=== PATIENT | female | born 1980 | race Caucasian/White ===

== ENCOUNTER 2023-04-29 09:19 | Outpatient (CLI) | payer BC ==
[2023-04-29 09:36] LABS: HCT - HEMATOCRIT 41.2 % (37.0-47.0); HGB - HEMOGLOBIN 13.1 g/dL (12.0-16.0); MEAN CORPUSCULAR HGB CONC 31.8 g/dL (32.0-36.0); MEAN PLATELET VOLUME 10.3 fL (7.9-10.8); RED BLOOD COUNT 4.68 10^6/uL (4.20-5.40); RED CELL DISTRIBUTION WIDTH 13.7 % (12.0-15.0); WHITE BLOOD COUNT 8.7 x10^3/uL (4.8-10.8)
[2023-04-29 13:37] LABS: ESTIMATED AVERAGE GLUCOSE 126 mg/dL (70-100)
[2023-05-02 19:07] LABS: ANTINUCLEAR ANTIBODIES IFA Positive (.)
== END 2023-04-29 09:20 | disposition home or self-care (01) ==
LOC: LAB 09:19
PROVIDERS: ATTEND Nurse Practitioner
DX: G89.29 Other chronic pain (principal)
CPT/HCPCS: 36415; 83036; 84443; 85027; 86038

== ENCOUNTER 2023-05-27 07:10 | Outpatient (CLI) | payer BC ==
[~2023-05-27 07:10] MED LIST: GADOTERATE MEGLUMINE 10 MMOL/20 ML VIAL ONE; GADOTERATE MEGLUMINE 5 MMOL/10 ML VIAL ONE
[2023-05-27] MEDS ORDERED: GADOTERATE MEGLUMINE 10 MMOL/20 ML VIAL IVP ONE (08:32)
--- NOTE | 2023-05-27 12:08 | MRI Report ---
PROCEDURE: PELVIS W/WO INDICATIONS: ENDOMETRIOSIS CONTRAST: CLARISCAN 27 ML TECHNIQUE: Coronal ultra fast SE, sagittal breath-hold T2 FSE; axial T1 FSE with and without fat saturation thro ugh the pelvis. Optional long- and short-axis uterine nonbreath-hold T2 FSE through the uterus. Sag ittal or axial dynamic ultra fast GE during administration of contrast. Post-contrast axial or coron al ultra fast GE / 2-D spoiled GE with fat saturation from the iliac crests to the symphysis. Option al diffusion weighted imaging and ADC may be performed. COMPARISON: None. FINDINGS: Image quality: Excellent. Uterus: Uterus is normal in size. Endometrium is normal in thickness. Junctional zone is normal in thickness at 12 mm or less. Adnexa: Both ovaries are normal in size, without suspicious cystic or solid lesions. 1.2 cm follicl e containing T1 hyperintense, T2 intermediate signal (series 6, image 18). Urinary system: Bladder wall is normal in thickness. Distal ureters are non distended. Urethra zain ears normal in morphology. Nodes and vessels: No pelvic or inguinal adenopathy by size criteria. Iliac vessels are normal in s ize. Bowel and peritoneum: No pathologic free pelvic fluid. Inferior colon and small bowel loops are nor mal in caliber. Colonic diverticulosis without evidence of diverticulitis. Soft tissues: No inguinal hernias. No findings of pelvic floor incompetence in the absence of provo cation. Bones: Marrow demonstrates normal overall signal. IMPRESSION: Right ovarian endometrioma measuring 1.2 cm. No evidence of adenomyosis or deep endometriosis. Reviewed by: River Eli on 05/27/2023 12:06 PM PST Approved by: River Eli on 05/27/2023 12:06 PM PST Station ID: [id number]
== END 2023-05-27 07:11 | disposition home or self-care (01) ==
LOC: DI 07:10
PROVIDERS: ATTEND Nurse Practitioner
DX: N80.101 Endometriosis of right ovary, unspecified depth (principal)
CPT/HCPCS: 72197; A9575

== ENCOUNTER 2023-05-29 07:07 | Outpatient (CLI) | payer BC ==
--- NOTE | 2023-05-29 16:55 | Ultrasound Report ---
PROCEDURE: Abdomen Limited INDICATIONS: GALLSTONES TECHNIQUE: Real-time focused scanning was performed of the abdomen, with image documentation. COMPARISONS: Correlation is made with CT, 04/13/2023 FINDINGS: Liver: The liver demonstrates normal size. The liver demonstrates moderately increased echogenicit y, which limits ultrasound sensitivity for detection of masses. The main portal vein demonstrates nor mal size and hepatopedal flow. Gallbladder: There is a hyperechoic shadowing mobile gallstone seen that measures 2.1 x 1.8 x 1.3 cm. The gallbladder wall does not appear thickened. There is no specific pericholecystic fluid. The sono graphic Mendoza's sign is negative. Biliary ducts: Intrahepatic bile ducts are non-dilated. Extrahepatic bile duct caliber measures 4 m m. Normal is 6-7 mm or less in diameter, or 10 mm or less post-cholecystectomy. Pancreas: Visualized portions of the pancreas are sonographically normal. Right kidney: Normal in size and echotexture. Right kidney measures 9.2 cm long. No hydronephrosis o r nephrolithiasis. No solid masses. No complex renal cystic lesions which require follow-up. IVC: Intrahepatic inferior vena cava is patent. Miscellaneous: No free abdominal fluid. IMPRESSION: A mobile 2.1 cm gallstone can be seen within the gallbladder, without additional sonographic signs of cholecystitis. No biliary dilatation is seen. Increased liver echogenicity is seen. This is nonspecific, yet it is most commonly attributed to fatt y infiltration. Reviewed by: Matt Mcduffie MD on 05/29/2023 3:54 PM [facility] Approved by: Matt Mcduffie MD on 05/29/2023 3:54 PM [facility] Station ID: [id number]
== END 2023-05-29 07:08 | disposition home or self-care (01) ==
LOC: DI 07:07
PROVIDERS: ATTEND Surgery
DX: K80.20 Calculus of gallbladder without cholecystitis without obstruction (principal)

== ENCOUNTER 2023-06-08 08:13 | Outpatient (CLI) | payer BC ==
--- NOTE | 2023-06-08 11:13 | XRAY Report ---
PROCEDURE: Ankle 2 View LT INDICATIONS: LEFT ANKLE PAIN TECHNIQUE: 3 views of the ankle were acquired. COMPARISON: None. FINDINGS: Bones: No fractures or dislocations. Ankle mortise is normally aligned. No suspicious bony lesions . Soft tissues: No tibiotalar joint effusion. Achilles tendon appears normal. IMPRESSION: No acute bony abnormality. Reviewed by: Edi Puga on 06/08/2023 11:11 AM [facility] Approved by: Edi Puga on 06/08/2023 11:11 AM [facility] Station ID: [id number]
== END 2023-06-08 08:14 | disposition home or self-care (01) ==
LOC: DI 08:13
PROVIDERS: ATTEND Nurse Practitioner
DX: M25.572 Pain in left ankle and joints of left foot (principal)

== ENCOUNTER 2023-07-12 09:07 | Outpatient (CLI) | payer BC ==
--- NOTE | 2023-07-12 16:20 | MRI Report ---
PROCEDURE: ANKLE WO - LT INDICATIONS: LEFT ANKLE PAIN TECHNIQUE: Noncontrast Magnetic Resonance Imaging (MRI) of the ankle/hindfoot was performed utilizing the follow ing sequences: sagittal T1 spin echo, sagittal STIR, axial PD fast spin echo, axial T2 fast spin echo with fat saturation, coronal PD fast spin echo with fat saturation, and coronal T2 fast spin echo wi th fat saturation. COMPARISON: Left ankle radiographs 06/08/2023 FINDINGS: Image quality: Excellent. Bones and joints: No acute trabecular bone injury or fracture. No hindfoot coalition. The ankle mortise is maintained. No osteochondral defect is seen at the talar dome. Medial structures: The deltoid ligament and the spring ligament complex are intact. There is mild distal posterior tibia lis tenosynovitis. The flexor digitorum longus and flexor hallucis longus tendons are intact. The pos terior tibial neurovascular bundle appears normal within the tarsal tunnel, without extrinsic mass ef fect. Lateral structures: The anterior and posterior distal tibiofibular ligaments are intact. The anterior talofibular ligamen t appears attenuated, consistent with a remote prior moderate grade sprain. The calcaneofibular ligam ent is mildly thickened consistent with a chronic low-grade sprain. Posterior talofibular ligament ap pears to be intact. The peroneus brevis and longus tendons demonstrate mild tendinosis and tenosynovi tis. The sinus tarsi demonstrates normal fatty signal. Anterior structures: The tibialis anterior, extensor hallucis longus, and extensor digitorum longus tendons appear intact. Posterior and plantar structures: Moderate Achilles tendinosis with small focal intrasubstance fluid signal that may indicate a tiny pa rtial intrasubstance tear. There is thickening of the proximal plantar fascia without surrounding adin ma, consistent with chronic fasciopathy. No disproportionate atrophy of the abductor digiti minimi mu scle. IMPRESSION: 1.Remote prior grade 2-3 sprain of the anterior talofibular ligament. Chronic grade 1 sprain of the c alcaneofibular ligament. 2.Mild peroneus brevis and longus tendinosis and tenosynovitis. 3.Mild distal posterior tibialis tenosynovitis. 4.Moderate Achilles tendinosis with a suspected tiny focus of low-grade partial intrasubstance tearin g. No high-grade tendon tearing is seen. 5.Mild chronic proximal plantar fasciitis. Reviewed by: Héctor Avila MD on 07/12/2023 4:19 PM PST Approved by: Héctor Avila MD on 07/12/2023 4:19 PM PST Station ID: [id number]
== END 2023-07-12 09:08 | disposition home or self-care (01) ==
LOC: DI 09:07
PROVIDERS: ATTEND Nurse Practitioner
DX: M76.62 Achilles tendinitis, left leg (principal); S93.492D Sprain of other ligament of left ankle, subsequent encounter; S93.412D Sprain of calcaneofibular ligament of left ankle, subsequent encounter; M65.9 Synovitis and tenosynovitis, unspecified; M67.874 Other specified disorders of tendon, left ankle and foot; M72.2 Plantar fascial fibromatosis

== ENCOUNTER 2023-12-20 11:37 | Outpatient (CLI) | payer BC | END 2023-12-20 11:38 | disposition home or self-care (01) | LOC: LAB 11:37 | PROVIDERS: ATTEND Internal Medicine Rheumatology | DX: M47.819 Spondylosis without myelopathy or radiculopathy, site unspecified (principal); M79.7 Fibromyalgia | CPT/HCPCS: 81599 ==

== ENCOUNTER 2024-01-20 10:04 | Outpatient (CLI) | payer BC ==
[2024-01-20 10:15] LABS: BASOPHILS # (AUTO) 0.1 10^3/uL (0.0-0.1); BASOPHILS % (AUTO) 0.6 %; EOSINOPHILS # (AUTO) 0.3 10^3/uL (0.0-0.7); EOSINOPHILS % (AUTO) 2.8 %; HCT - HEMATOCRIT 44.4 % (37.0-47.0); HGB - HEMOGLOBIN 13.5 g/dL (12.0-16.0); LYMPHOCYTES # (AUTO) 2.8 10^3/uL (1.5-3.5); LYMPHOCYTES % (AUTO) 24.6 %; MEAN CORPUSCULAR HEMOGLOBIN 26.6 pg (27.0-31.0); MEAN CORPUSCULAR HGB CONC 30.4 g/dL (32.0-36.0); MEAN CORPUSCULAR VOLUME 87.6 fL (81.0-99.0); MEAN PLATELET VOLUME 10.3 fL (7.9-10.8); MONOCYTES # (AUTO) 0.5 10^3/uL (0.0-1.0); MONOCYTES % (AUTO) 4.5 %; NEUTROPHILS # (AUTO) 7.7 10^3/uL (1.5-6.6); NEUTROPHILS % (AUTO) 67.1 %; PLT - PLATELET COUNT 348 10^3/uL (130-450); RED BLOOD COUNT 5.07 10^6/uL (4.20-5.40); RED CELL DISTRIBUTION WIDTH 14.3 % (12.0-15.0); WHITE BLOOD COUNT 11.4 x10^3/uL (4.8-10.8)
[2024-01-20 10:35] LABS: ALBUMIN 4.3 g/dL (3.2-5.5); BILIRUBIN,DIRECT 0.15 mg/dL (0.03-0.18); BILIRUBIN,TOTAL 0.8 mg/dL (0.2-1.0); CREATININE 0.8 mg/dL (0.6-1.3); CRP - C-REACTIVE PROTEIN 2.3 mg/dL (<0.5); TOTAL PROTEIN 7.4 g/dL (6.4-8.9)
== END 2024-01-20 10:05 | disposition home or self-care (01) ==
LOC: LAB 10:04
PROVIDERS: ATTEND Internal Medicine Rheumatology
DX: M47.819 Spondylosis without myelopathy or radiculopathy, site unspecified (principal); M79.7 Fibromyalgia
CPT/HCPCS: 36415; 80076; 82565; 85025; 85651; 86140

== ENCOUNTER 2024-02-17 07:55 | Outpatient (CLI) | payer BC ==
[2024-02-17 08:10] LABS: BASOPHILS # (AUTO) 0.1 10^3/uL (0.0-0.1); BASOPHILS % (AUTO) 0.6 %; EOSINOPHILS # (AUTO) 0.3 10^3/uL (0.0-0.7); EOSINOPHILS % (AUTO) 2.4 %; HGB - HEMOGLOBIN 13.2 g/dL (12.0-16.0); LYMPHOCYTES # (AUTO) 2.6 10^3/uL (1.5-3.5); LYMPHOCYTES % (AUTO) 25.5 %; MEAN CORPUSCULAR HEMOGLOBIN 28.1 pg (27.0-31.0); MEAN CORPUSCULAR HGB CONC 32.2 g/dL (32.0-36.0); MEAN CORPUSCULAR VOLUME 87.2 fL (81.0-99.0); MONOCYTES # (AUTO) 0.7 10^3/uL (0.0-1.0); MONOCYTES % (AUTO) 6.5 %; NEUTROPHILS # (AUTO) 6.6 10^3/uL (1.5-6.6); NEUTROPHILS % (AUTO) 64.5 %; PLT - PLATELET COUNT 305 10^3/uL (130-450); RED CELL DISTRIBUTION WIDTH 15.1 % (12.0-15.0); WHITE BLOOD COUNT 10.2 x10^3/uL (4.8-10.8)
[2024-02-17 08:25] LABS: ALBUMIN 4.4 g/dL (3.2-5.5); BILIRUBIN,DIRECT 0.1 mg/dL (0.03-0.18); BILIRUBIN,TOTAL 0.7 mg/dL (0.2-1.0); CREATININE 0.7 mg/dL (0.6-1.3); CRP - C-REACTIVE PROTEIN 2.4 mg/dL (<0.5); TOTAL PROTEIN 7.3 g/dL (6.4-8.9)
== END 2024-02-17 07:56 | disposition home or self-care (01) ==
LOC: LAB 07:55
PROVIDERS: ATTEND Internal Medicine Rheumatology
DX: M47.819 Spondylosis without myelopathy or radiculopathy, site unspecified (principal); M79.7 Fibromyalgia
CPT/HCPCS: 36415; 80076; 82565; 85025; 85651; 86140

== ENCOUNTER 2024-03-16 08:28 | Outpatient (CLI) | payer BC ==
[2024-03-16 09:01] LABS: ALBUMIN 4.1 g/dL (3.2-5.5); BILIRUBIN,DIRECT 0.21 mg/dL (0.03-0.18); BILIRUBIN,TOTAL 0.8 mg/dL (0.2-1.0); CREATININE 0.7 mg/dL (0.6-1.3); CRP - C-REACTIVE PROTEIN 3.1 mg/dL (<0.5); TOTAL PROTEIN 7.1 g/dL (6.4-8.9)
[2024-03-16 09:09] LABS: BASOPHILS # (AUTO) 0.1 10^3/uL (0.0-0.1); BASOPHILS % (AUTO) 0.7 %; EOSINOPHILS # (AUTO) 0.2 10^3/uL (0.0-0.7); EOSINOPHILS % (AUTO) 2.1 %; HGB - HEMOGLOBIN 13.1 g/dL (12.0-16.0); LYMPHOCYTES # (AUTO) 2.5 10^3/uL (1.5-3.5); LYMPHOCYTES % (AUTO) 24.3 %; MEAN CORPUSCULAR HEMOGLOBIN 27.9 pg (27.0-31.0); MEAN CORPUSCULAR VOLUME 87.2 fL (81.0-99.0); MEAN PLATELET VOLUME 10.5 fL (7.9-10.8); MONOCYTES # (AUTO) 0.6 10^3/uL (0.0-1.0); MONOCYTES % (AUTO) 5.4 %; PLT - PLATELET COUNT 323 10^3/uL (130-450); RED CELL DISTRIBUTION WIDTH 15.7 % (12.0-15.0); WHITE BLOOD COUNT 10.4 x10^3/uL (4.8-10.8)
== END 2024-03-16 08:29 | disposition home or self-care (01) ==
LOC: LAB 08:28
PROVIDERS: ATTEND Internal Medicine Rheumatology
DX: M47.819 Spondylosis without myelopathy or radiculopathy, site unspecified (principal); M79.7 Fibromyalgia
CPT/HCPCS: 36415; 80076; 82565; 85025; 85651; 86140

== ENCOUNTER 2024-04-13 08:58 | Outpatient (CLI) | payer BC ==
[2024-04-13 09:14] LABS: BASOPHILS # (AUTO) 0.1 10^3/uL (0.0-0.1); BASOPHILS % (AUTO) 0.6 %; EOSINOPHILS # (AUTO) 0.3 10^3/uL (0.0-0.7); EOSINOPHILS % (AUTO) 2.3 %; HCT - HEMATOCRIT 41.6 % (37.0-47.0); HGB - HEMOGLOBIN 13.1 g/dL (12.0-16.0); LYMPHOCYTES # (AUTO) 2.3 10^3/uL (1.5-3.5); LYMPHOCYTES % (AUTO) 19.7 %; MEAN CORPUSCULAR HEMOGLOBIN 27.8 pg (27.0-31.0); MEAN CORPUSCULAR HGB CONC 31.5 g/dL (32.0-36.0); MEAN CORPUSCULAR VOLUME 88.3 fL (81.0-99.0); MONOCYTES # (AUTO) 0.6 10^3/uL (0.0-1.0); MONOCYTES % (AUTO) 5.5 %; NEUTROPHILS # (AUTO) 8.2 10^3/uL (1.5-6.6); NEUTROPHILS % (AUTO) 71.5 %; PLT - PLATELET COUNT 309 10^3/uL (130-450); RED BLOOD COUNT 4.71 10^6/uL (4.20-5.40); RED CELL DISTRIBUTION WIDTH 15.4 % (12.0-15.0); WHITE BLOOD COUNT 11.4 x10^3/uL (4.8-10.8)
[2024-04-13 09:27] LABS: BILIRUBIN,DIRECT 0.13 mg/dL (0.03-0.18); BILIRUBIN,TOTAL 0.6 mg/dL (0.2-1.0); CREATININE 0.8 mg/dL (0.6-1.3); CRP - C-REACTIVE PROTEIN 2.1 mg/dL (<0.5); TOTAL PROTEIN 7.1 g/dL (6.4-8.9)
== END 2024-04-13 08:59 | disposition home or self-care (01) ==
LOC: LAB 08:58
PROVIDERS: ATTEND Internal Medicine Rheumatology
DX: M47.819 Spondylosis without myelopathy or radiculopathy, site unspecified (principal); M79.7 Fibromyalgia
CPT/HCPCS: 36415; 80076; 82565; 85025; 85651; 86140